=== PATIENT | female | born 1985 | race Two or more races ===

== ENCOUNTER 2022-10-02 09:41 | Emergency (ER) | payer BC ==
[2022-10-02] MEDS ORDERED: Sodium Chloride 0.9% 1,000 ML IV ONE (10:02)
[2022-10-02] MEDS ORDERED: Sodium Chloride 0.9% 10 ML Syringe FLUSH PRN (10:02)
[2022-10-02] MEDS ORDERED: Sodium Chloride 0.9% 1,000 ML IV SCH (10:45)
[2022-10-02] MEDS ORDERED: Hydrocortisone Sodium Succinate 100 MG/2 ML SDV IVPUSH ONE (10:51)
[2022-10-02] MEDS ORDERED: Hydrocortisone Sodium Succinate 100 MG/2 ML SDV ONE (10:53)
[2022-10-02 10:54] LABS: ESTIMATED GFR 50 mL/min (>60)
[2022-10-02 11:52] VITALS: BP 103/53; PULSE 81
[2022-10-02] MEDS ORDERED: Piperacillin/Tazobactam 3.375 GM in Sodium Chloride 0.9% 50 ML IV ONE (12:04)
[2022-10-02 15:22] LABS: CORONAVIRUS COVID-19 NAA NEGATIVE (NEGATIVE)
== END 2022-10-02 14:00 ==
LOC: FB.ED 09:41
DX: A41.9 Sepsis, unspecified organism (principal); I95.89 Other hypotension; N83.8 Other noninflammatory disorders of ovary, fallopian tube and broad ligament; Z79.899 Other long term (current) drug therapy; Z20.822 Contact with and (suspected) exposure to COVID-19
CPT/HCPCS: 0240U; 36415; 51702; 74176; 80053; 81001; 81025; 83605; 83735; 85025; 86140; 86850; 86900; 86901; 87040; 96361; 96365; 96375; 99285; 99285-25; J1720; J2543; J7030